=== PATIENT | female | born 1955 | race Caucasian/White ===

== ENCOUNTER 2018-05-13 07:35 | Day surgery (SDC) | payer OTHER ==
--- NOTE | 2018-05-07 13:28 | EKG ---
Test Date: 2018-05-07 Test Time: 13:09:20 Verse Writer: JOHNSON MEASUREMENT RESULTS: Intervals: Rate: 73 TN: 204 QRSD: 82 QT: 390 QTc: 429 [place]: P: 49 TN: 204 QRS: 69 T: 58 INTERPRETIVE STATEMENTS: Normal sinus rhythm Normal ECG Compared to ECG 08/25/2015 07:57:18 No significant changes Electronically Signed On 05-07-18 13:27:29 CDT by Ortiz Estrada
[2018-05-13] MEDS ORDERED: Ringers Lactate 1,000 ML IV ONE (07:59)
[2018-05-13] MEDS ORDERED: LIDOCAINE 1% W/EPI 1:100,000 MDV 50 ML VIAL ONE (09:21)
[2018-05-13] MEDS ORDERED: NA CHLORIDE 0.9% 1,000 ML ONE (09:21)
[2018-05-13] MEDS ORDERED: FENTANYL CITR 100 MCG/2 ML ONE ×2 (09:22→10:17)
[2018-05-13] MEDS ORDERED: PROPOFOL 200 MG/20 ML VIAL IV ONE (09:22)
[2018-05-13] MEDS ORDERED: MIDAZOLAM HCL 2 MG/2 ML INJ ONE (09:23)
[2018-05-13] MEDS ORDERED: LIDOCAINE 2% MPF 5 ML VIAL ONE (09:23)
[2018-05-13] MEDS ORDERED: KETOROLAC 30 MG/ML INJ ONE (10:24)
[2018-05-13] MEDS ORDERED: GLYCOPYRROLATE 0.2 MG/ML SYR ONE (10:26)
[2018-05-13] MEDS ORDERED: IBUPROFEN 400 MG TAB ONE (11:12)
[2018-05-13] MEDS ORDERED: IBUPROFEN 200 MG TAB PO ONE (11:12)
[2018-05-13 11:40] VITALS: BP 143/74; TEMP 97.7; O2SAT 95
--- NOTE | 2018-05-13 13:18 | OP ---
Date of Procedure: 05/13/2018 Surgeon: May Thomas MD Preoperative Diagnosis: Postmenopausal bleeding. Postoperative Diagnoses: Postmenopausal bleeding and endometrial polyp. Procedures Performed: Operative hysteroscopy, polypectomy, and dilation and curettage. Anesthesia: General with LMA. Specimens: Endometrial polyp and curettings. Complications: No complications. Drains: No drains. Condition: The patient is stable. Estimated Blood Loss: Minimal. Indications For Procedure: The patient is a 62-year-old who presented with postmenopausal bleeding. Transvaginal ultrasound was performed, and she was found to have thickened endometrium. The stripe was 17 mm. We discussed about the possibility of an endometrial polyp. So, hysteroscopy, D and C we re to be performed needing to discern it was not a polyp, to rule out endometrial atypia or malignanc y. After a consent was obtained, the patient was brought to the OR. She was placed in a supine fash ion on the operating room table. She was placed in a dorsal lithotomy position. After anesthesia wa s given, pelvic exam was performed. Uterus was found to be anteflexed about 8 weeks size. Speculum was used to expose the cervix. Anterior lip grasped with 2 Allis clamps. Prep x3 with Betadine was done. There was a tiny cervical polyp that was removed, very insignificant. Then direct hysteroscop y with a 30-degree lens and a SlimLine hysteroscope was performed using normal saline as distention m edium. After entering the uterine cavity, there was a medium-sized polyp in the posterior wall of th e uterus about 2 cm. Attempt was made to remove the polyp by scraping of the tip of the scope; howev er, this would not completely detach the polyp. It was densely adherent to the underlying endometriu m. So, the SlimLine was removed. The operative sheath was placed and tapped, and then reintroduced with scissors through it. Base was cut. The polyp was removed using the polyp forceps or the Kamran l forceps, and there were pieces of polyp initially then the rest of the complete polyp was removed. Hysteroscope was reintroduced to check the removal of the polyp in its entirety. Once this was conf irmed and pictures were taken, the scope was removed. Endometrial curettings were performed. The en dometrium was thin, and this was consistent with a scant amount of endometrial curettings I was able to obtain. All the specimens were sent to Pathology. She was recovered from anesthesia in the OR an d taken to PACU in stable condition. Toradol 30 mg intravenously was given prior to recovering. She has a followup appointment with me in 1 week. We will discuss the pathology and make a further plan . MICHELA Voice ID: [id number] Report ID: [id number]
== END 2018-05-13 11:42 | disposition home or self-care (01) ==
LOC: OR 07:35
PROVIDERS: ATTEND Obstetrics & Gynecology
PROC: 0UDB7ZX Extraction of Endometrium, Via Natural or Artificial Opening, Diagnostic (ICD-10-PCS; 2018-05-13)
PROC: 0UJD8ZZ Inspection of Uterus and Cervix, Via Natural or Artificial Opening Endoscopic (ICD-10-PCS; 2018-05-13)
PROC: 0UB97ZX Excision of Uterus, Via Natural or Artificial Opening, Diagnostic (ICD-10-PCS; principal; 2018-05-13 09:00)
DX: N95.0 Postmenopausal bleeding (principal); N84.0 Polyp of corpus uteri; E03.9 Hypothyroidism, unspecified; I10 Essential (primary) hypertension
CPT/HCPCS: 88305; 93005; J2250; J2704; J3010; J7030

== ENCOUNTER 2023-06-13 09:23 | Day surgery (SDC) | payer BC ==
[2023-06-10 16:28] LABS: Absolute Lymphocytes (CBC) 3.4 K/uL (0.7-4.9); Hematocrit 40.5 % (36.0-45.0); MCV 92.3 fL (80-100); MPV 8.2 fL (7.6-11.3); Platelets 282 thou/uL (152-406); RBC Red Blood Cell Count 4.39 M/uL (3.86-4.86)
[2023-06-10 16:33] LABS: Urine Color Yellow (Yellow)
[2023-06-10 16:34] LABS: Urine Bilirubin Negative (Negative); Urine Blood Negative (Negative); Urine Clarity Clear (Clear); Urine Glucose Negative (Negative); Urine Protein Negative (Negative); Urine pH 5.5 (5.0-7.0)
[2023-06-13] MEDS ORDERED: Ringers Lactate 1,000 ML IV ONE (09:42)
[2023-06-13] MEDS ORDERED: SCOPOLAMINE HYDROBROMIDE PATCH TD ONE (09:42)
[2023-06-13] MEDS ORDERED: NEOSTIGMINE 1 MG/ML -10 ML VIAL ONE (10:01)
[2023-06-13] MEDS ORDERED: propofoL 200 MG/20 ML VIAL IV ONE (10:01)
[2023-06-13] MEDS ORDERED: FENTANYL CITR 100 MCG/2 ML ONE ×3 (10:01→13:01)
[2023-06-13] MEDS ORDERED: LIDOCAINE 2% MPF 5 ML VIAL ONE (10:01)
[2023-06-13] MEDS ORDERED: ROCURONIUM 50 MG/5 ML VIAL IV ONE ×2 (10:01→12:58)
[2023-06-13] MEDS ORDERED: GLYCOPYRROLATE 0.2 MG/ML SYR ONE ×2 (10:01→10:05)
[2023-06-13] MEDS ORDERED: ONDANSETRON 4 MG/2 ML VIAL ONE (10:01)
[2023-06-13] MEDS ORDERED: MIDAZOLAM HCL 2 MG/2 ML INJ ONE (10:02)
[2023-06-13] MEDS: CEFAZOLIN SODIUM 2 GM/VIAL ONE ×2 (11:14→11:15)
[2023-06-13] MEDS: BUPIVACAINE 0.25% PF 30 ML VIAL ONE ×2 (11:21→12:04)
[2023-06-13] MEDS: Ringers Lactate 1,000 ML IV ONE ×3 (13:21→13:30)
[2023-06-13] MEDS ORDERED: MEPERIDINE HCL 25 MG/ML SYR ONE (13:46)
[2023-06-13] MEDS ORDERED: HYDROMORPHONE HCL 1 MG/ML INJ ONE ×2 (14:59→15:06)
--- NOTE | 2023-06-13 15:26 | EKG ---
Test Date: 2023-06-10 Test Time: 17:13:38 Practice Performance Manager: APRYL MEASUREMENT RESULTS: Intervals: Rate: 61 NH: 190 QRSD: 84 QT: 406 QTc: 408 [place]: P: 57 NH: 190 QRS: 75 T: 74 INTERPRETIVE STATEMENTS: Normal sinus rhythm Normal ECG Compared to ECG 05/07/2018 13:09:20 No significant changes Electronically Signed On 06-13-23 15:15:09 WAREHOUSE ANALYST by Damion Hopson
[2023-06-13 15:56] VITALS: BP 145/88; TEMP 97.3; O2SAT 96
--- NOTE | 2023-06-14 01:18 | OP ---
Date of Procedure: 06/13/2023 Surgeon: May Thomas MD Executive Producer: Sariah Dunaway. Preoperative Diagnosis: Recurrent postmenopausal bleeding. Postoperative Diagnoses: Recurrent postmenopausal bleeding and right paraovarian cyst. Procedures Performed: Total laparoscopic hysterectomy, bilateral salpingo-oophorectomy, pelvic washi ngs, and cystoscopy. Specimens: Uterus, bilateral tubes and ovaries, and right para ovarian mass. Complications: No complications. Drains: No drains. Patient's Condition: Stable. Ebl: 75. Urine Output: 100. Lr: 1300. Findings: Uterus was unremarkable. Bilateral tubal and ovarian adhesions were noted. On the right, there was a large paraovarian cyst. It is 4-5 cm, simple. Vaginal cuff was closed in a single laye r with both fascial edges brought together with PDS 5 sutures were placed and then cystoscopy showed patent ureters and no evidence of any injury to the bladder. Indications: The patient had been seen in our office for many years. She has had recurrent episodes of postmenopausal bleeding. On evaluation x2, both pathology specimens were benign, however, with u nexplained bleeding. Offered her further observation with ultrasound followup and possible biopsy if needed or hysterectomy with salpingo-oophorectomy, pelvic washings, and if there is any precancer, a typia, or malignancy diagnosed, then this would be . If cancer is diagnosed, she would be referred to a gynecological oncologist. The patient understood all this and she was consented. Her daughter was in the preoperative area and we discussed this at this time as well. Description Of Procedure: She was taken back to OR, placed in supine fashion on the operating table. General anesthesia was given. A 2 g of Ancef were given. SCDs were placed. Time-out was done. A fter patient was placed in a dorsal lithotomy position and arms tucked by the side, positioning check ed. Abdomen was prepped with ChloraPrep, vulva, vagina, and perineum with Betadine and draped in a s terile fashion. Speculum was placed to expose the cervix. Anterior lip grasped with Allis clamps after dilating the cervix to 16-Northern Irish. Medium cup vaginal manipulator was introduced and fixed in place. Crowley to matti in the bladder and attached to a gravity bag. A 1 cm supraumbilical incision made with a scalpel in a curvilinear fashion. Fascia tagged with 0 Vi cryl sutures and peritoneum was entered immediately. There was a periumbilical hernia. Site of entry was checked and unremarkable. A 10, 12 ports in a suprapubic, 5 ports x2, 1 in the rig ht and the other in the left lower quadrant under direct vision were placed after injecting with Wild syed at the skin and fascia. Thorough examination of the peritoneal cavity was performed. Adhesions of the omentum to the anterio r abdominal wall in the midline as well as to the left lower quadrant, all these were taken down. Th ere were tubal and ovarian adhesions to the sidewall. Right paraovarian cyst in the right lower quad rant, which is above the pelvic brim. Lysis of adhesions: The tubal and ovarian adhesions on the left side were taken down from the sidewa ll from the bowel as well as the lateral pelvic wall. These were all taken down sharply and with Lig aSure. Once these were freed up, the round ligament was taken down with the help of the LigaSure and the peritoneum taken down towards IP ligament parallel to it. After dissecting between the ureter a nd the IP window created, the LigaSure was used to take down the IP ligament with the pedicle and thi s was hemostatic. Then, attention directed to the anterior peritoneum, opened up to raise the bladde r flap posterior peritoneum to the posterior cuff and the vessels were skeletonized, cauterized, and cut with the LigaSure and then the bipolar tip. We went on opposite side, similar dissection was performed. We took down the right round ligament, m esosalpinx, paraovarian tissue, and window made between the ureter and the ovary. IP ligament was ta catina down with the help of the LigaSure and posterior peritoneum taken down to the level of the manipu lator cup. Anteriorly peritoneum opened up. As the broad ligament was being dissected, there was bl eeding from the uterine vein. This was cauterized and then later the pedicle was isolated after the bladder flap was completed and vessels taken down on the right side with the LigaSure as well as a bi polar. Then, cardinal ligaments were taken down on both sides. Right paraovarian cyst was picked up and gently the peritoneum around it was incised and cyst removed from the right lower quadrant and placed in the cul-de-sac. After the entire cardinal ligament complex was also taken down, circumferential colpotomy with a mono polar hook blade was performed. The specimen with the uterus and ovaries, tubes, attached to it was removed and handed off for permanent pathology. The paraovarian cyst was also removed through the va junior. After thorough irrigation and suction, hemostasis with the bipolar, especially on the right side. Fi ve sutures were placed to close the cuff with 0 PDS, 2 simple sutures of the ends and 3 [id number] ght in the middle to support the entire anterior, posterior vaginal wall fascia and the epithelium al l together. Once this was done, there was excellent support. No evidence of any electrical, mechani antoni, or thermal injury to the ureters. Cystoscopy: A 17-[place] sheath, 30-degree lens, normal saline was used. The Crowley was removed. Vag inal packing was removed and the cystoscope was introduced. Strong jets of urine from both ureteric orifices were noted. No evidence of any trauma to the bladder. Bladder was drained. Coming back to the laparoscopic part, there was Chris that was sprayed as a hemostatic agent in the right lower quadrant in the pelvic area. Once this was done, there was excellent hemostasis. All th e trocars were removed under direct vision. Fascia at the umbilicus after desufflating the abdomen w as closed with the help of 0 Vicryl sutures tied to each other and simple 0 Vicryl stitch at the supr apubic site. The skin incisions were closed with 5-0 Monocryl. She was recovered from anesthesia an d taken to PACU in stable condition. Her daughter was debriefed about her condition. She has a 1-we ek follow up with me. THI/JOSE R Voice ID: [id number] Report ID: [id number]
== END 2023-06-13 16:40 | disposition home or self-care (01) ==
LOC: OR 09:23
PROVIDERS: ATTEND Obstetrics & Gynecology
PROC: 0UT74ZZ Resection of Bilateral Fallopian Tubes, Percutaneous Endoscopic Approach (ICD-10-PCS; 2023-06-13)
PROC: 0UT24ZZ Resection of Bilateral Ovaries, Percutaneous Endoscopic Approach (ICD-10-PCS; 2023-06-13)
PROC: 0UT94ZZ Resection of Uterus, Percutaneous Endoscopic Approach (ICD-10-PCS; principal; 2023-06-13 10:30)
DX: N95.0 Postmenopausal bleeding (principal); N85.00 Endometrial hyperplasia, unspecified; N83.201 Unspecified ovarian cyst, right side; N88.8 Other specified noninflammatory disorders of cervix uteri; N80.03 Adenomyosis of the uterus; N73.6 Female pelvic peritoneal adhesions (postinfective)
CPT/HCPCS: 93005; 85025; 36415; 86900; 88108; 86850; 86902 ×2; 86870; 86901; 88305; 88307; 81003; 58571; J2704; J2710; J2001; J2250; J3010 ×3; J2175; J1170 ×2; J2405; J7120 ×2